=== PATIENT | female | born 1975 | race Two or more races ===

== ENCOUNTER 2022-02-18 08:04 | Inpatient (IN) | payer OTHER ==
[~2022-02-18] VITALS: Ht 160 cm; Wt 77.1 kg
[~2022-02-18 08:04] MED LIST: LYNPARZA150 MG PO
== END 2022-02-19 11:28 | disposition home or self-care (01) | DRG 743 ==
LOC: CIR.AMB 08:04 → O/R 17:13 → SURG 18:47 → SURH 22:01
PROVIDERS: ADMIT Obstetrics & Gynecology Gynecologic Oncology; ATTEND Obstetrics & Gynecology Gynecologic Oncology
PROC: 0UT74ZZ Resection of Bilateral Fallopian Tubes, Percutaneous Endoscopic Approach (ICD-10-PCS; 2022-02-18)
PROC: 0UT24ZZ Resection of Bilateral Ovaries, Percutaneous Endoscopic Approach (ICD-10-PCS; 2022-02-18)
PROC: 0UT94ZZ Resection of Uterus, Percutaneous Endoscopic Approach (ICD-10-PCS; principal; 2022-02-18 10:15)
DX: D25.1 Intramural leiomyoma of uterus (principal); N72 Inflammatory disease of cervix uteri; N80.0 Endometriosis of uterus; N83.02 Follicular cyst of left ovary; N83.01 Follicular cyst of right ovary; N83.291 Other ovarian cyst, right side; N83.292 Other ovarian cyst, left side; Z20.822 Contact with and (suspected) exposure to COVID-19